=== PATIENT | female | born 1945 | race Caucasian/White ===

== ENCOUNTER → 2016-11-08 | Outpatient (CLI) | payer MEDICARE, OTHER ==
[~2016-11-08] MED LIST: ALBUTEROL17 G1 IH; ALPRAZOLAM PO; ALTACE PO; ALTACE10 MG PO; ANEXSIA 5/325 M1 TA1 PO; ASPIRIN EC81 M1 PO; ASPIRIN PO; B COMPLEX1 CA1 PO; BACLOFEN10 MG PO; CALCIUM 500 + D1 TAB PO; CLOPIDOGREL75 MG PO; COLACE PO; CRESTOR PO; CRESTOR40 MG PO; FLOVENT DI50 MCG/DIS; GABAPENTIN300 MG PO; IMDUR PO; IMDUR120 MG PO; K-DUR20 ME1 PO; K-LOR HOSPITAL20 ME1; KCL PO; LASIX PO; LEXAPRO PO; LIORESAL10 MG PO; LOMOTIL TABLET1 TAB PO; MAG-OX 400400 MG PO; MAG-OXIDE400 MG PO; NEURONTIN PO; NITROSTAT0.4 MG SL; PANTOPRAZOLE SO40 MG; PERCOCET5/325 PO; PLAQUENIL200 MG PO; PLAVIX PO; PREVACID PO; PROTONIX PO; RAMIPRIL2.5 M1 PO; REGLAN PO; TEMAZEPAM PO; TOPROL XL PO; TOPROL XL50 MG PO; ULTRAM PO; XANAX0.5 MG PO; ZANTAC300 MG PO; ZETIA PO; ZITHROMAX PO; ZOFRAN PO
--- NOTE | ~2016-11-08 | MY26 ---
[facility] A Service of [facility] & [facility] RADIOLOGY TEXT RESULTS PATIENT: SHASHANK ALVARENGA LOCATION: [facility] : [birth year] UNIT #: [id number] AGE: [address]: Ariana Bhatti APRN SEX: F ORDER DR: [id number] [facility] [address] [place], [place] [address] [id number] O MR#: [id number] Acc #: [id number] NAME: SHASHANK ALVARENGA. : 1945 SEX: F STUDY DATE/TIME: 11/08/2016 10:32 UNIT: [facility] ROOM: STUDY DESCRIPTION: [facility] DIAGNOSTIC W/ CAD BILAT Attending Physician: Ariana Bhatti A.P.R.N. Referring Physician: Ariana Bhatti A.P.R.N. Ordering Physician: Ariana Bhatti A.P.R.N. Primary Care Physician: Madelaine Vaughn M.D. MEDICAL IMAGING REPORT This report is preliminary unless electronic signature is present EXAM Diagnostic mammogram, 11/08. INDICATIONS Left breast pain at about the 6 o'clock position intermittently for about 1 month. FINDINGS Digital CC, MLO, and ML views of both breasts were obtained in addition to a left spot compression CC and ML views. Study is reviewed with an FDA-approved CAD device. COMPARISON Comparison is made with 05/03/2015, 06/28/2012, and 03/14/2011. FINDINGS Breast parenchyma shows scattered fibroglandular densities. There are no suspicious microcalcifications on either side. Benign calcifications are present in both breasts. In the upper/outer quadrant of the left breast, there is a partially obscured, tiny nodular density measuring about 3 mm in size mammographically. Ultrasound was performed of the upper/outer left breast and around the 6 o'clock axis in the area of pain indicated by the patient. Ultrasound demonstrates only a 3 x 5 mm cyst at the 3 o'clock position about 4 cm from the nipple. This could correspond to the mammographic finding. No abnormalities seen in the area of pain indicated by the patient. Results and recommendations were discussed with the patient at the time of her examination today. IMPRESSION 1. Benign right mammogram. 2. Benign targeted left ultrasound showing only a small cyst at 3 STS. [facility] A Service of [facility] RADIOLOGY TEXT RESULTS PATIENT: SHASHANK ALVARENGA LOCATION: [facility] : 49 UNIT #: [id number] AGE: [address]: Ariana Bhatti APRN SEX: F ORDER DR: o'clock. 3. No cause to the patient's left breast pain identified. 4. Tiny nodular density in the upper/outer left breast. This may correspond to this is seen by ultrasound. I would recommend a 6-month followup mammogram of the left breast to document stability as a precaution. Patients over the age of 40 are entered into a reminder system with target due date for the next mammogram. A result letter will also be sent to the patient. BIRADS: 3 Probably benign finding; short interval followup suggested. Dictated by... Nikolas Cramer Jr., M.D. THIS IS AN ELECTRONICALLY VERIFIED REPORT Nikolas Cramer Jr., M.D. at 11/08/2016 5:04 PM RG/kimo TD: 11/08/2016 15:54 JOB #: [id number] MEDICAL IMAGING REPORT Page 1 of 1 COPY
--- NOTE | ~2016-11-08 | US24 ---
[facility] A Service of [facility] & [facility] RADIOLOGY TEXT RESULTS PATIENT: SHASHANK ALVARENGA LOCATION: [facility] : 47 UNIT #: [id number] AGE: [address]: Ariana Bhatti APRN SEX: F ORDER DR: [id number] [facility] [address] [place], [place] [address] [id number] O MR#: [id number] Acc #: [id number] NAME: SHASHANK ALVARENGA. : 1945 SEX: F STUDY DATE/TIME: 11/08/2016 11:16 UNIT: [facility] ROOM: STUDY DESCRIPTION: US Breast Unilateral Attending Physician: Ariana Bhatti A.P.R.N. Referring Physician: Ariana Bhatti A.P.R.N. Ordering Physician: Ariana Bhatti A.P.R.N. Primary Care Physician: Madelaine Vaughn M.D. MEDICAL IMAGING REPORT This report is preliminary unless electronic signature is present EXAM Left breast ultrasound, 11/08 INDICATION Breast pain at 6 o'clock position intermittently for about 1 month. Small nodular density noted on the mammogram today, upper outer left breast. FINDINGS For a full report, please see the mammogram report dated 11/08/2016. Patients over the age of 40 are entered into a reminder system with target due date for the next mammogram. A result letter will also be sent to the patient. BIRADS: 3 Probably Benign Finding; Short interval follow-up suggested Dictated by... Nikolas Cramer Jr., M.D. THIS IS AN ELECTRONICALLY VERIFIED REPORT Nikolas Cramer Jr., M.D. at 11/08/2016 5:04 PM RG/catrina TD: 11/08/2016 15:53 JOB #: [id number] MEDICAL IMAGING REPORT Page 1 of 1 COPY
== END | disposition home or self-care (01) ==
LOC: CMAM 11-01 09:00
DX: N64.4 Mastodynia (principal); N60.02 Solitary cyst of left breast
CPT/HCPCS: 76641; G0204

== ENCOUNTER 2016-12-30 22:00 | Emergency (ER) | payer MEDICARE, OTHER ==
[~2016-12-30] VITALS: Ht 160 cm; Wt 63.0 kg
== END 2016-12-30 23:05 | disposition home or self-care (01) ==
LOC: SED 22:00
DX: S00.83XA Contusion of other part of head, initial encounter (principal); M54.2 Cervicalgia; M79.7 Fibromyalgia; G37.3 Acute transverse myelitis in demyelinating disease of central nervous system; I11.0 Hypertensive heart disease with heart failure; I50.9 Heart failure, unspecified; Z79.82 Long term (current) use of aspirin; Z79.899 Other long term (current) drug therapy; Z88.2 Allergy status to sulfonamides; Z88.1 Allergy status to other antibiotic agents; Z88.5 Allergy status to narcotic agent; Z91.041 Radiographic dye allergy status; Z91.018 Allergy to other foods; Z91.048 Other nonmedicinal substance allergy status; W01.198A Fall on same level from slipping, tripping and stumbling with subsequent striking against other object, initial encounter; Y92.009 Unspecified place in unspecified non-institutional (private) residence as the place of occurrence of the external cause
CPT/HCPCS: 99283